=== PATIENT | male | born 1940 ===

== ENCOUNTER 2019-01-02 09:34 | Day surgery (SDC) | payer OTHER | END 2019-01-02 12:55 | disposition home or self-care (01) | LOC: AMB-ENDOS 09:34 → EDBD 13:15 | DX: D12.2 Benign neoplasm of ascending colon (principal); K57.30 Diverticulosis of large intestine without perforation or abscess without bleeding ==

== ENCOUNTER 2020-02-12 10:11 | Day surgery (SDC) | payer OTHER | END 2020-02-12 15:15 | disposition home or self-care (01) | LOC: CIR.AMB 10:11 | PROVIDERS: ATTEND Surgery | DX: K62.89 Other specified diseases of anus and rectum (principal); K64.8 Other hemorrhoids; Z20.828 Contact with and (suspected) exposure to other viral communicable diseases ==

== ENCOUNTER 2021-05-19 11:58 | Inpatient (IN) | payer OTHER ==
[~2021-05-19] VITALS: Ht 167.6 cm; Wt 83.9 kg
[2021-05-19] MEDS ORDERED: SIMVASTATIN40 MG PO (12:18)
[2021-05-19] MEDS ORDERED: ENALAPRIL-HCTZ1 EACH PO (12:18)
[2021-05-19] MEDS ORDERED: METFORMIN HCL500 M4 PO (12:19)
[2021-05-19] MEDS ORDERED: ALLOPURINOL300 MG PO (12:20)
[2021-05-19] MEDS ORDERED: METFORMIN HCL500 MG (12:21)
[2021-05-20] MEDS ORDERED: BRIMONIDINE TART5 M1 (14:48)
[2021-05-20] MEDS ORDERED: DICLOFENAC SODI75 MG (14:48)
[2021-05-20] MEDS ORDERED: TRAM1TAB98 (14:48)
[2021-05-20] MEDS ORDERED: INTESTINEX680 M1 (14:48)
[2021-05-20] MEDS ORDERED: PANTOPRAZOLE SO40 MG (14:48)
[2021-05-20] MEDS ORDERED: LATANOPROST2.5 ML (14:48)
[2021-05-20] MEDS ORDERED: DICYCLOMINE HCL10 MG (14:48)
[2021-05-20] MEDS ORDERED: DIPHENHYDR50 MG/1 M1 (14:49)
[2021-05-20] MEDS ORDERED: METFORMIN HCL500 M4 (14:49)
[2021-05-20] MEDS ORDERED: DEXAMETHASO4 MG/1 M1 (14:49)
[2021-05-20] MEDS ORDERED: ALLOPURINOL300 MG (14:49)
[2021-05-20] MEDS ORDERED: LEUCOVORIN CAL200 MG (14:49)
[2021-05-20] MEDS ORDERED: FLUOROURAC1 GM/20 ML (14:49)
[2021-05-20] MEDS ORDERED: FAMOTIDINE20 MG/2 M1 (14:49)
[2021-05-20] MEDS ORDERED: [UNRECOGNIZED DRUG - OTHER] (14:50)
[2021-05-20] MEDS ORDERED: ONDANSETRON4 MG/2 M5 (14:50)
[2021-06-01] MEDS ORDERED: ULTRACET PO (08:57)
[2021-06-01] MEDS ORDERED: INTESTINEX680 M1 PO (08:58)
[2021-06-01] MEDS ORDERED: PEPCID AC20 MG PO (08:58)
== END 2021-06-01 09:16 | disposition home or self-care (01) | DRG 330 ==
LOC: ER 11:58 → SURG 18:28
PROVIDERS: ADMIT Surgery; ATTEND Surgery
PROC: 02HV33Z Insertion of Infusion Device into Superior Vena Cava, Percutaneous Approach (ICD-10-PCS; 2021-05-20)
PROC: BW21YZZ Computerized Tomography (CT Scan) of Abdomen and Pelvis using Other Contrast (ICD-10-PCS; 2021-05-20)
PROC: B54DZZZ Ultrasonography of Bilateral Lower Extremity Veins (ICD-10-PCS; 2021-05-25)
PROC: 0DBG8ZX Excision of Left Large Intestine, Via Natural or Artificial Opening Endoscopic, Diagnostic (ICD-10-PCS; 2021-05-26)
PROC: 0DBW4ZX Excision of Peritoneum, Percutaneous Endoscopic Approach, Diagnostic (ICD-10-PCS; 2021-05-28)
PROC: 0D1L4Z4 Bypass Transverse Colon to Cutaneous, Percutaneous Endoscopic Approach (ICD-10-PCS; principal; 2021-05-28 09:00)
DX: C18.6 Malignant neoplasm of descending colon (principal); K56.699 Other intestinal obstruction unspecified as to partial versus complete obstruction; C18.5 Malignant neoplasm of splenic flexure; C78.6 Secondary malignant neoplasm of retroperitoneum and peritoneum; K64.8 Other hemorrhoids; K59.09 Other constipation; I10 Essential (primary) hypertension; K57.30 Diverticulosis of large intestine without perforation or abscess without bleeding; D64.9 Anemia, unspecified; F43.20 Adjustment disorder, unspecified; Z20.822 Contact with and (suspected) exposure to COVID-19; E11.9 Type 2 diabetes mellitus without complications; Z79.4 Long term (current) use of insulin

== ENCOUNTER 2021-06-02 05:51 | Emergency (ER) | payer OTHER ==
[~2021-06-02] VITALS: Ht 170.2 cm; Wt 83.9 kg
[~2021-06-02 05:51] MED LIST: ALLOPURINOL300 MG; ALLOPURINOL300 MG PO; BRIMONIDINE TART5 M1; DEXAMETHASO4 MG/1 M1; DICLOFENAC SODI75 MG; DICYCLOMINE HCL10 MG; DIPHENHYDR50 MG/1 M1; ENALAPRIL-HCTZ1 EACH PO; FAMOTIDINE20 MG/2 M1; FLUOROURAC1 GM/20 ML; INTESTINEX680 M1; INTESTINEX680 M1 PO; LATANOPROST2.5 ML; LEUCOVORIN CAL200 MG; METFORMIN HCL500 M4; METFORMIN HCL500 M4 PO; METFORMIN HCL500 MG; ONDANSETRON4 MG/2 M5; PANTOPRAZOLE SO40 MG; PEPCID AC20 MG PO; SIMVASTATIN40 MG PO; TRAM1TAB98; ULTRACET PO; [UNRECOGNIZED DRUG - OTHER]
== END 2021-06-02 10:28 | disposition home or self-care (01) ==
LOC: ER 05:51
DX: R11.2 Nausea with vomiting, unspecified (principal); Z93.3 Colostomy status; D12.3 Benign neoplasm of transverse colon; Z88.8 Allergy status to other drugs, medicaments and biological substances; I10 Essential (primary) hypertension

== ENCOUNTER 2021-06-30 18:27 | Emergency (ER) | payer OTHER ==
[~2021-06-30] VITALS: Ht 170.2 cm; Wt 76.2 kg
[2021-06-30] MEDS ORDERED: STIVARGA40 MG PO (18:48)
[2021-07-01] MEDS ORDERED: CIPRO500 MG PO (06:54)
[2021-07-01] MEDS ORDERED: METRONIDAZOLE500 MG PO (06:54)
== END 2021-07-01 10:38 ==
LOC: ER 18:27
DX: K52.9 Noninfective gastroenteritis and colitis, unspecified (principal); R07.9 Chest pain, unspecified; Z91.041 Radiographic dye allergy status